=== PATIENT | female | born 1970 | race Caucasian/White ===

== ENCOUNTER 2017-02-08 10:34 | Day surgery (SDC) | payer BC ==
[2017-02-08] VITALS (10 sets, daily range): BP systolic 110–130; BP diastolic 69–77; PULSE 60–87; RESP 16–18; TEMP 97.6–98.6; O2SAT 96–97
[~2017-02-08] VITALS: Ht 162.6 cm; Wt 85.0 kg
[~2017-02-08 10:34] MED LIST: CARV12.52 PO; FURO20TA PO; LANTUS2P SC; LISI-357 PO; MEGE40TA PO; METF500 PO; SPIR25TA PO; WARF1TAB PO
[2017-02-08] MEDS ORDERED: VANCOMYCIN 1000 MG/NS 250 ML IV SCH ×2 (11:30)
[2017-02-08] MEDS ORDERED: LACTATED RINGER'S 1000 ML IV PRN (11:30)
[2017-02-08] MEDS ORDERED: ceFAZolin 2 GM PREMIX 50 ML IV SCH (11:30)
[2017-02-08] MEDS ORDERED: SODIUM CHLORID 0.9% 500 ML IV PRN (11:30)
[2017-02-08] MEDS ORDERED: MUPIROCIN 2% OINT 1 APPLIC/GM SYR NASAL SCH (11:30)
[2017-02-08] MEDS ORDERED: INSULIN HUMAN REGULAR 1,000 UNITS/10 ML VIAL SQ PRN (11:30)
[2017-02-08] MEDS ORDERED: NS 1000 ML IV SCH (11:30)
[2017-02-08] MEDS ORDERED: CHLORHEXIDINE GLUCONATE 2 % 1 PACK (2 CLOTHS) TOPICAL SCH (11:30)
[2017-02-08] MEDS ORDERED: POVIDONE IODINE 5% (ANTISEPSIS KIT) 4 APPLICATIONS EACH NARE PRN (11:30)
[2017-02-08] MEDS ORDERED: NO Heparin, Lovenox, Coumadin at least 12 hours prior to procedure. PRN (11:30)
[2017-02-08] MEDS ORDERED: CHLORHEXIDINE GLUCONATE 2 % 1 PACK (2 CLOTHS) TOPICAL PRN (11:30)
[2017-02-08] MEDS ORDERED: METOPROLOL TARTRATE 25 MG TAB PO PRN (11:30)
[2017-02-08] MEDS ORDERED: Hold AM Insulin & AM Hypoglycemic medications in diabetic patients PRN (11:30)
[2017-02-08] MEDS ORDERED: POVIDONE IODINE 5% (ANTISEPSIS KIT) 4 APPLICATIONS EACH NARE SCH (11:30)
[2017-02-08] MEDS ORDERED: SPIR25TA PO (11:36)
[2017-02-08] MEDS ORDERED: SACU1TAB PO (11:36)
[2017-02-08] MEDS ORDERED: TORS20TA PO (11:36)
[2017-02-08] MEDS ORDERED: POTA-243 PO (11:36)
[2017-02-08] MEDS ORDERED: METF750T PO (11:36)
[2017-02-08] MEDS ORDERED: PLAV75TA29 PO (11:36)
[2017-02-08] MEDS ORDERED: LANTUS2P SQ (11:36)
[2017-02-08] MEDS ORDERED: ASPI81TA11 PO (11:36)
[2017-02-08] MEDS ORDERED: CORE25TA PO (11:36)
[2017-02-08] MEDS ORDERED: ATOR10TA15 PO (11:36)
[2017-02-08] MEDS ORDERED: FENO145T2 PO (11:36)
[2017-02-08] MEDS ORDERED: LIDOCAINE HCL 1% PF 5 ML AMPULE OTHER ONE (12:00)
[2017-02-08] MEDS ORDERED: PROPOFOL 200 MG/20 ML AMP IV ONE (12:00)
[2017-02-08] MEDS ORDERED: MIDAZOLAM HCL 2 MG/2 ML VIAL IV ONE (12:00)
[2017-02-08 12:05] LABS: BASOPHIL % 0.4 % (0.0-2.0); EOSINOPHIL # 0.1 TH/MM3 (0-0.4); EOSINOPHIL % 1.7 % (0.0-4.0); HEMATOCRIT 38.7 % (35.0-46.0); HEMO FLAGS DIFF FINAL; LYMPH % 18.7 % (9.0-44.0); LYMPHOCYTE # 1.6 TH/MM3 (1.0-4.8); MEAN CELL VOLUME 89.3 FL (80.0-100.0); MEAN CORPUSCULAR HEMOGLOBIN 31.4 PG (27.0-34.0); MEAN CORPUSCULAR HGB CONC 35.1 % (32.0-36.0); MONO % 6.4 % (0.0-8.0); NEUT % 72.8 % (16.0-70.0); PLATELET COUNT 334 TH/MM3 (150-450); RED BLOOD COUNT 4.33 MIL/MM3 (4.00-5.30); RED CELL DISTRIBUTION WIDTH 13.4 % (11.6-17.2); WHITE BLOOD COUNT 8.3 TH/MM3 (4.0-11.0)
[2017-02-08 12:23] LABS: ANION GAP 12 MEQ/L (5-15); BLOOD UREA NITROGEN 16 MG/DL (7-18); CHLORIDE 98 MEQ/L (98-107); GLOMERULAR FILTRATION RATE 70 ML/MIN (>89); POTASSIUM 3.7 MEQ/L (3.5-5.1); SODIUM (NA) 133 MEQ/L (136-145)
[2017-02-08 12:31] LABS: APTT (PATIENT) 25.6 SEC (24.3-30.1); BHCG SCREEN QUALITATIVE LESS THAN 1 MIU/ML (0-5); INTERNATIONAL NORMALIZED RATIO 0.9 RATIO; PROTHROMBIN TIME - PATIENT 10.2 SEC (9.8-11.6)
[2017-02-08] MEDS ORDERED: VANCOMYCIN 500 MG VIAL ONE (12:42)
[2017-02-08] MEDS ORDERED: LIDOCAINE HCL 2% 50 ML VIAL ONE (12:43)
[2017-02-08] MEDS ORDERED: PROPOFOL 200 MG/20 ML AMP ONE ×2 (14:23→15:05)
[2017-02-08] MEDS ORDERED: MAGNESIUM HYDROXIDE SUSP 30 ML CUP PO PRN (15:45)
[2017-02-08] MEDS ORDERED: ZOLPIDEM TARTRATE 5 MG TAB PO PRN (15:45)
[2017-02-08] MEDS ORDERED: ONDANSETRON HCL 4 MG/2 ML VIAL IV PUSH PRN (15:45)
[2017-02-08] MEDS ORDERED: ACETAMINOPHEN/CODEINE 300 MG/30 MG TAB PO PRN (15:45)
--- NOTE | 2017-02-08 15:46 | CATHPROC ---
[email or web address] HIS Report Study Information Study Number Admission Scheduled Start Study Start [id number] Feb 08 2017 10:34AM 02/08/2017 Feb 08 2017 12:28PM [place] Service Cardiac Pacer/ICD Admit Source Facility Department Other [facility] - [facility] Physician and Clinical Staff Initial MD Escobedo, Lucille Surveillance Monitor Wanda Hunt,RT(R) TECH2 Other Anesthesia, CARDIOTHORACIC ANESTHESIA TECHNICIAN Recorder Michaela Rodriguez,BSRN Recorder Charisse Meyers,RUTH Scrub Zoe Mario RCIS Procedures Performed Procedure Lead Insertion Equipment Time Senior Systems Architect Description Size Mfg Part Number Used/Scraped [id number] 12:36 [employer] PACK, CCL CUSTOM * Used *[id number] 12:36 MEDLINE PACER ANGUIANO, LIMB * 2530 *[id number] Used 12:36 MEDLINE PACER ANGUIANO, LIMB * 2530 *[id number] Used 12:36 [employer] MEDICAL PACER SHEATH, FR8.5 MERIT 11CM FR 8.5 [id number] Used 12:36 [employer] MEDICAL PACER SHEATH, FR8.5 MERIT 11CM FR 8.5 [id number] Used 13:59 Needle Sponge Count 1 111 Used 15:08 Needle Sponge Count 1 111 Used 15:30 Needle Sponge Count 1 111 Used 15:30 Needle Sponge Count 20 200 Used 15:08 Needle Sponge Count 20 200 Used 13:59 Needle Sponge Count 20 200 Used 16:54 Needle Sponge Count 30 1 Used 16:55 Needle Sponge Count 30 1 Used 16:55 Needle Sponge Count 30 1 Used 13:59 Needle Sponge Count 5 5 Used 15:08 Needle Sponge Count 6 6 Used 15:30 Needle Sponge Count 6 6 Used SUTURE, 3-0 MONOCRYL [SH] (Y316H) [id number] 12:36 [employer],WARM AIR CCL * Used *[id number] DEFIBRILLATOR, EVERA MRI XT 15:00 VITATRON MEDTRONIC DDE-DDDR [id number] Used DR ABEL CAPSURE FIX NOVUS, 4076-45CM 14:42 [employer] 45CM Used 45CM *[id number] LEAD, SPRINT QUATTRO SECURE 14:37 VIT[employer]RON [employer] 55CM [id number] Used 55CM Equipment Model, Serial, Lot Number and Expiration Data Description Model Number Serial Number Lot Number Expiration Date DEFIBRILLATOR, EVERA MRI XT [id number] 10-30-2017 LEADNIKOLAY, 45CM 4076-45 [id number] 12-02-2018 LEAD, GRANT [place] 6935-55 [id number] 05-22-2018 55CM History: Current Medications Medication Dosage/Unit Route Frequency Last Date/Time Taken Beta Aimee K-Dur ASA PLAVIX History: Allergies Allergy Reaction NKDA History: Risk Factors Family History of Hypertension Dyslipidemia Previous NH Previous Heart Failure Premature CAD Yes Yes No No Yes Prior Valve Prior PCI Prior CABG Surgery No No No Cerebrovascular Diabetes Diabetes Therapy Disease Yes Yes Insulin History: Symptoms/Diagnosis Selection Items Syncope Labs Hgb (g/dl) Hct (%) RBC (MIL/MM3) WBC (l/cumm) Platelets (thousands) 11.60-17.00 35.00-51.00 4.00-5.90 4.00-11.00 150.00-450.00 13.6 38.7 4.3 8.3 334 Glucose (mg/dl) BUN (mg/dl) Creatinine (mg/dl) BUN:Creatinine (1:x) 74.00-106.00 7.00-18.00 0.50-1.30 10.00-20.00 304 16 0.8 20 Na (meq/l) K (meq/l) Cl (meq/l) CO2 (mmol/L) Ca (mg/dl) 136.00-145.00 3.50-5.10 98.00-107.00 21.00-32.00 8.50-10.10 133 3.7 98 23 9.4 INR (PTT:PT) 0.90-1.10 0.9 Medication Medication Total Dose (Bolus/Oral) Medication Total Dosage/Unit 2% XYLOCAINE 50 mL Medications (Bolus/Oral) Medication Time Given Dosage/Unit Administered By Reason 2% XYLOCAINE 02/08/2017 2:18:34 PM 50 mL Lucille Escobedo 50 mL 2% XYLOCAINE given in lab by Lucille Escobedo via Subcutaneous. Ordered by Lucille Escobedo. LE FT UPPER CHEST Medication (Drip) Medication Time Given Dosage/Unit Concentration/Unit Diluent (ml) Solution ANCEF 02/08/2017 1:42:55 PM 2 g 2 g ANCEF given in lab by Michaela Rodriguez BSRN in Left Antecubital via Peripheral IV. Ordered by Lucille Gunter. Reason: As per physicians verbal order. IV Solutions 02/08/2017 1:38:08 PM 0 mL (IV) NaCl .9 IV Solutions given in lab by Michaela Rodriguez BSRN in Left Forearm via Peripheral IV. Pump/Drip Flow = 50 ml/hr using NaCl .9. Ordered by Lucille Escobedo. Reason: As per physicians verbal order. IV Solutions 02/08/2017 1:38:37 PM 0 mL (IV) NaCl .9 IV Solutions given in lab by Michaela Rodriguez BSRN in Right Forearm via Peripheral IV. Pump/Drip Kavon w = 50 ml/hr using NaCl .9. Ordered by Lucille Escobedo. Reason: As per physicians verbal order. VANCOMYCIN DRIP 02/08/2017 1:42:42 PM 1 g 1 g VANCOMYCIN DRIP given in lab by Michaela Rodriguez BSRN in Right Antecubital via Peripheral IV. Or dered by Lucille Escobedo. Initial Case Assessment Cardiovascular HR Rhythm NIBP Chest Pain 77 NSR 151/85 0 Edema Present Skin color Skin None Normal Warm Dry Neurological State Oriented to time-place- Alert Moves all extremities person Respiration - General Respiration Rate SpO2 (%) (B/min) 18 99 Final Case Assessment Cardiovascular HR NIBP Chest Pain 79 111/61 0 Edema Present Skin color Skin None Normal Warm Dry Neurological State Oriented to time-place- Alert Moves all extremities person Respiration - General Respiration Rate SpO2 (%) (B/min) 20 98 Chronological Log Time Study Chronological Log 13:16:09 Patient arrived via Bed. 13:16:11 Patient Name, D.O.B, / Armband Verified By R.N. 13:16:13 Consent signed by the physician and the patient and verified by the [facility] staff. 13:16:16 Pre-op and post- op instructions given; patient acknowledges understanding of instruction s. 13:37:02 Verbal Stimulation=2 Physical Stimulation=2 Airway=2 Respiration=2 TOTAL=10. (0=absent, 1=l imited, 2=present) 13:37:12 Anesthesia at bedside. Assumes care of patient. Zev CARDIOTHORACIC ANESTHESIA TECHNICIAN 13:37:21 Presedation assessment performed by [facility] RN. 13:37:23 Patient has been NPO for More than 6Hrs. 13:37:25 Skin Breakdown- none 13:37:32 Patient Warmer Placed on the Table. 13:37:35 Disposable Defibrillator Pads Placed On Patient. 13:37:37 Yancy Prominences Protected 13:37:39 History and physical on the chart or being dictated. 13:37:42 A # 20 IV was noted in the Forearm (left). Grade = ~GRADE~ 13:38:00 A # 20 IV was noted in the Forearm (right). Grade = ~GRADE~ IV Solutions given in lab by Michaela Rodriguez BSRN in Left Forearm via Peripheral IV. Pump/Dri p Flow = 50 ml/hr using 13:38:08 NaCl .9. Ordered by Lucille Escobedo. Reason: As per physicians verbal order. IV Solutions given in lab by Michaela Rodriguez BSRN in Right Forearm via Peripheral IV. Pump/Dr ip Flow = 50 ml/hr 13:38:37 using NaCl .9. Ordered by Lucille Escobedo. Reason: As per physicians verbal order. 13:39:00 Table restraints applied according to hospital policy 13:39:02 Left Upper Chest Prepped Times Two. Assessment: Initial Case, HR=77 BPM, Rhythm=NSR, POVE=417/85 mmhg, Chest Pain=0, Edema=None, Color=Normal, Skin = Warm, Dry 13:39:08 Neurological: State=Alert, Ox3, KIRK Respiration: Resp=18 B/min, SpO2=99 % 13:39:43 Bovie ground pad applied to: right thigh 1 g VANCOMYCIN DRIP given in lab by Michaela Rodriguez BSRN in Right Antecubital via Peripheral IV. Ordered by 13:42:42 Lucille Escobedo. 2 g ANCEF given in lab by Michaela Rodriguez BSRN in Left Antecubital via Peripheral IV. Ordered by Lucille Escobedo. 13:42:55 Reason: As per physicians verbal order. 13:53:46 2% CHLORHEXIDINE GLUCONATE WASH AND NASAL SWIPE DONE PRIOR TO PROCEDURE. First Sponge And Instrument Count Done by Rittenour, Michaela, BSRN. 13:54:19 Hypo's: 5, Sponges: 30, Bovie/scratch: 1 Sutures: 12, Blades: 2, Instruments: 26, Syveck Patches: ~SYVECK PATCH~ 14:05:09 Reference ECG taken Time Out. Correct patient, procedure, procedure equipment, site and side verified with physicia n present. Time 14:13:05 concurred by MD, individual staff and CARDIOTHORACIC ANESTHESIA TECHNICIAN. Time Out #2 - Consents verified, patient in correct position, all results are labled and displa yed, safety precautions 14:13:42 taken, antibiotics administered. Time out concurred by MD, individual staff and CARDIOTHORACIC ANESTHESIA TECHNICIAN in procedu re 14:13:58 Case Start 50 mL 2% XYLOCAINE given in lab by Lucille Escobedo via Subcutaneous. Ordered by Drake Escobedo. LEFT 14:18:34 UPPER CHEST 14:27:26 Vascular access was obtained in the Subclav. Vein (Lft. 14:27:57 Wire inserted 14:29:21 Surgical Incision Made. 14:30:16 A pocket was created at the Lt. upper chest. 14:33:54 Vascular access was obtained in the Subclav. Vein (Lft. 14:34:37 Wire inserted 14:38:36 A SHEATH, FR8.5 MERIT 11CM FR 8.5 was advanced into the Subclav. Vein (Lft using the Percut aneous technique. 14:38:48 A LEAD, SPRINT QUATTRO SECURE 55CM 55CM was inserted and positioned in the RV. 14:38:58 Lead placement verified under fluoroscopy 14:39:01 The RV lead impedance and threshold being tested. 14:41:09 A SHEATH, FR8.5 MERIT 11CM FR 8.5 was advanced into the Subclav. Vein (Lft using the Percu taneous technique. 14:42:44 A LEAD, CAPSURE FIX NOVUS, 45CM 45CM was inserted and positioned in the RA. 14:42:57 Lead placement verified under fluoroscopy 14:43:06 The Atrial lead impedance and threshold is being tested. 14:51:33 The RV lead was sutured to the fascia. 14:53:15 The Atrial lead was sutured to the fascia. 15:00:10 A DEFIBRILLATOR, EVERA MRI XT DR DDE-DDDR was connected and placed in the pocket. 15:03:29 Pocket flushed with antibiotic solution Second Sponge And Instrument Count Done by Wanda Hunt, RT(R) TECH2. 15:05:03 Hypo's: 6, Sponges: 30, Bovie/scratch: 1 Sutures: ~SUTURE~, Blades: 2, Instruments: ~INSTRU~, Syveck Patches: ~SYVECK PATCH~ 15:06:27 The pocket was closed. 15:14:16 Implant Procedure was performed. 15:14:30 A ICD Implant . (Dual) 15:14:43 Bedside Report will be given. The Final Sponge And Instrument Count Done by Lucille Escobedo. 15:22:08 Hypo's: 6, Sponges: 30, Bovie/scratch: 1 Sutures: 12, Blades: 2, Instruments: 26, Syveck Patches: 0 15:22:19 Steri-strips and a sterile dressing applied to site. 15:30:34 A sling was placed on the affected arm. 15:30:42 Case End Assessment: Final Case, HR=79 BPM, KTLM=977/61 mmhg, Chest Pain=0, Edema=None, Color=Normal, S kin = Warm, Dry 15:31:45 Neurological: State=Alert, Ox3, KIRK Respiration: Resp=20 B/min, SpO2=98 % 15:32:27 No case complications noted. 15:32:33 Cine recording checked. 15:32:42 Holding Area notified of successful intervention. [facility] 15:33:00 Implantable Device card placed in patient's chart. 15:33:04 Defibrillator and ground pads removed. Skin intact. 15:33:08 Verbal Stimulation=2 Physical Stimulation=2 Airway=2 Respiration=2 TOTAL=10. (0=absent, 1= limited, 2=present) 15:55:00 Patient moved to [facility] and transported to [facility] in stable condition. End Study - Contrast Media Used In Study Contrast Total Opened (mL) Total Used (mL) Total Wasted (mL) Unspecified 0 0 0 End Study - Maximum Contrast Load Max Contrast Load (mL) 612.5 End Study - Radiation Exposure Fluoro Time (minutes) 4.9 End Study - Patient Disposition Complications Transferred To Interventional Outcome No Telemetry Bed successful
--- NOTE | 2017-02-08 17:14 | RADRPT ---
EXAM DATE/TIME: 02/08/2017 16:44 [place] COMPARISON: No previous studies available for comparison. INDICATIONS : Evaluate for pneumothorax post defibrillator placement MEDICAL HISTORY : Cardiovascular disease. SURGICAL HISTORY : ICD ENCOUNTER: Initial ACUITY: 1 day PAIN SCORE: 10/10 LOCATION: Left chest FINDINGS: Expiratory view of the chest demonstrates cardiac pacer and leads in place. No evidence of pneumotho rax. There is crowding of bronchopulmonary markings in the left perihilar region, characteristic of an expiratory film. Both hemidiaphragms well delineated. No evidence of mediastinal shift. CONCLUSION: No evidence of pneumothorax status post pacer placement. Antonio Thomas MD on February 08, 2017 at 17:11 Board Certified Radiologist. This report was verified electronically.
[2017-02-08] MEDS: ceFAZolin 2 GM PREMIX 50 ML IV SCH (22:18)
[2017-02-09] VITALS (14 sets, daily range): BP systolic 110–133; BP diastolic 69–92; PULSE 65–96; RESP 16; TEMP 98–98.5; O2SAT 97
[2017-02-09] MEDS: ceFAZolin 2 GM PREMIX 50 ML IV SCH (06:09)
[2017-02-09] MEDS ORDERED: ASPIRIN EC 81 MG TABEC PO SCH (09:00)
[2017-02-09] MEDS ORDERED: GLUCAGON 1 MG/ML VIAL OTHER PRN (09:00)
[2017-02-09] MEDS ORDERED: POTASSIUM CHLORIDE 10 MEQ CONTROLLED RELEASE TAB PO SCH (09:00)
[2017-02-09] MEDS ORDERED: CLOPIDOGREL 75 MG TAB PO SCH (09:00)
[2017-02-09] MEDS ORDERED: DEXTROSE 50% IN WATER 50 ML VIAL(D50) IV PUSH PRN (09:00)
[2017-02-09] MEDS ORDERED: CARVEDILOL 12.5 MG TAB PO SCH (10:00)
[2017-02-09] MEDS ORDERED: FENOFIBRATE 145 MG TAB PO SCH (10:00)
[2017-02-09] MEDS ORDERED: SACUBITRIL/VALSARTAN 24 MG-26 MG TAB PO SCH (11:00)
[2017-02-09] MEDS ORDERED: SPIRONOLACTONE 25 MG TAB PO SCH (11:00)
[2017-02-09] MEDS ORDERED: TORSEMIDE 20 MG TAB PO SCH (11:00)
--- NOTE | 2017-02-09 11:06 | MP ---
cc: BELA PENA HUMAYUN A. M.D. DATE OF SURGERY 02/09/2017 PROCEDURE Dual-chamber ICD. INDICATIONS Severe cardiomyopathy with supraventricular tachycardia. CONSENT A full, informed consent was obtained prior to the procedure. The risks of , bleeding, myocardial infarction, perforation, aspiration, pneumothorax, stroke, , foreseen and unforeseen complications were reviewed. The patient fully appeared to understand the risks. PROCEDURAL STATEMENT The patient was draped and prepped in the usual manner. The left infraclavicular area was carefully infiltrated with lidocaine. Using a micropuncture technique with ultrasound, two guidewires were placed into the venous circulation. A pulse generator pocket was then fashioned using blunt, sharp and cautery dissection. Over the two guidewires, two introducers were placed in the venous circulation and through these ventricular fibrillation lead was passed in the right ventricular apex and the helical screw was passed into the heart. The atrial lead was passed into the right atrial appendage through another introducer. Excellent pacing and sensing parameters were noted. Both leads were sewn into the pectoralis fascia. The lead pocket was flushed with vancomycin solution. Both leads were connected to their respective ports in the pulse generator. Set screws were tightened but not over-tightened. The pulse generator was then sewn down to the pectoralis fascia with silk and the pocket closed in three layers. CONCLUSIONS Successful placement of dual-chamber pacemaker. NOTE: The dual-chamber pacemaker is required for atrial lead discrimination as the patient also has concurrent supraventricular tachycardia. Lucille Escobedo MD, FRCP,[facility] /3:39 PM /10:56 AM
[2017-02-09] MEDS ORDERED: LOW DOSE INSULIN NOVOLOG SUPPLEMENTAL SCALE SQ SCH (12:00)
[2017-02-09] MEDS ORDERED: ATORVASTATIN 10 MG TAB PO SCH (21:00)
[2017-02-09] MEDS ORDERED: metFORMIN HCL 500 MG TAB PO SCH (21:00)
[2017-02-09] MEDS ORDERED: INSULIN DETEMIR 100 UNITS/ML VIAL SQ SCH (21:00)
--- NOTE | 2017-02-10 07:12 | EKG ---
Date Performed: 02/08/2017 Time Performed: 11:55:44 PTAGE: 46 years EKG: Sinus rhythm . Ant/septal and lateral ST-T changes are nonspecific Consider anterolateral ischemia Borderline ECG Since PREVIOUS TRACING , no significant change noted PREVIOUS TRACING 10/10/2015 09.52.24 DOCTOR: Howard Cantu Interpretating Date/Time 02/10/2017 07:11:53
--- NOTE | 2017-02-10 07:12 | EKG ---
Date Performed: 02/08/2017 Time Performed: 21:53:08 PTAGE: 46 years EKG: Sinus rhythm Possible anterior infarct - age undetermined Lateral T wave changes are nonspecific Low QRS voltages in precordial leads Abnormal ECG Compared to prior tracing no significant change PREVIOUS TRACING : 02/08/2017 11.55 DOCTOR: Howard Cantu Interpretating Date/Time 02/10/2017 07:12:03
== END 2017-02-09 13:27 | disposition home or self-care (01) ==
LOC: HDOC 10:34 → HDIC 10:34 → HDOC 15:37 → UNDOADMOB 15:37 → HDIC 15:37 → HSDI 15:37 → HCIN 16:03 → UNDODISOB 02-09 13:27 → HDOC 02-09 13:27
PROVIDERS: ATTEND Internal Medicine Cardiovascular Disease
DX: I42.9 Cardiomyopathy, unspecified (principal); I47.1 Supraventricular tachycardia; I50.9 Heart failure, unspecified; I10 Essential (primary) hypertension; E11.9 Type 2 diabetes mellitus without complications; I63.9 Cerebral infarction, unspecified; I20.9 Angina pectoris, unspecified; D53.9 Nutritional anemia, unspecified; R25.2 Cramp and spasm; Z01.818 Encounter for other preprocedural examination; Z79.4 Long term (current) use of insulin
CPT/HCPCS: 00534; 33249; 71010; 80048; 84703; 85025; 85610; 85730; 93005; 96365; C1721; C1895; C1898; G0378; J0690; J2250; J3010; J3370; J7050

== ENCOUNTER → 2017-09-01 | Outpatient (CLI) | payer BC ==
[~2017-09-01] MED LIST changes: +ASPI81TA23 PO; +ATOR10TA15 PO; -CARV12.52 PO; +CORE25TA PO; +FENO145T2 PO; -FURO20TA PO; +KLOR10TA PO; -LANTUS2P SC; +LANTUS2P SQ; -LISI-357 PO; -MEGE40TA PO; -METF500 PO; +METF750T PO; +PLAV75TA29 PO; +SACU1TAB PO; +TORS20TA PO; -WARF1TAB PO
[2017-09-01 15:17] LABS: BICARBONATE 26.1 MEQ/L (21.0-32.0); CALCIUM 8.9 MG/DL (8.5-10.1); CREATININE 0.7 MG/DL (0.50-1.00)
== END ==
LOC: CLAB 14:33
PROVIDERS: ATTEND Internal Medicine Cardiovascular Disease
DX: I50.9 Heart failure, unspecified (principal); E11.9 Type 2 diabetes mellitus without complications
CPT/HCPCS: 36415; 80048